=== PATIENT | male | born 1995 | race Caucasian/White ===

== ENCOUNTER 2021-10-18 15:57 | Emergency (ER) | payer SELFPAY ==
[~2021-10-18] VITALS: Ht 172.7 cm; Wt 73.0 kg
[2021-10-18 17:29] VITALS: BP 131/78
[2021-10-18] MEDS ORDERED: ONDA4TAB12 PO (17:30)
--- NOTE | 2021-10-18 17:31 | PHYS DOC ---
General Adult EDM: Chief Complaint: NAUSEA/VOMITING/DIARRHEA HPI: HPI: Patient is a 26-year-old male who presents to the emergency department for multiple complaints that started 2 days ago. Patient is complaining of nausea, diarrhea, headache, fatigue and loss of taste. He reports that the loss of taste started today. Patient denies any sick exposures. No treatment prior to arrival. Patient is denying blood in stools or vomit, fevers, worsening cough, chest pain he reports mild shortness of breath. (VETO ARMAS APRN) Review of Systems: Review of Systems: 14 body systems of the review of systems have been reviewed. See HPI for pert inent positive and negative responses, otherwise all other systems are negative, nonpertinent or noncontributory (VETO ARMAS APRN) Heart Score: C/O Chest Pain: No Risk Factors: Risk Factors: DM, Current or recent (<one month) smoker, HTN, HLP, family history of CAD, obesity. Risk Scores: Score 0 - 3: 2.5% MACE over next 6 weeks - Discharge Home Score 4 - 6: 20.3% MACE over next 6 weeks - Admit for Clinical Observation Score 7 - 10: 72.7% MACE over next 6 weeks - Early Invasive Strategies (VETO ARMAS APRN) Physical Exam: PE: Constitutional: Well developed, well nourished, no acute distress, non-toxic appearance. [] HENT: Normocephalic, atraumatic, bilateral external ears normal, oropharynx moist, no oral exudates, nose normal. [] Eyes: PERRL, EOMI, conjunctiva normal, no discharge. [] Neck: Normal range of motion, no stridor Cardiovascular:Heart rate regular rhythm, no murmur [] Lungs & Thorax: Bilateral breath sounds clear to auscultation [] Abdomen: Bowel sounds normal, soft, no tenderness, no masses, no pulsatile masses. [] Skin: Warm, dry, no erythema, no rash. [] Back: Normal range of motion Extremities: No tenderness, no cyanosis, no clubbing, ROM intact, no edema. [] Neurologic: Alert and oriented X 3, normal motor function, normal sensory functi on, no focal deficits noted. [] Psychologic: Affect normal, judgement normal, mood normal. [] (VETO ARMAS APRN) EKG: EKG: [] (VETO ARMAS APRN) Radiology/Procedures: Radiology/Procedures: [] (VETO ARMAS APRN) Course & Med Decision Making: Course & Med Decision Making Pertinent Labs and Imaging studies reviewed. (See chart for details) Patient presents to the emergency department for multiple complaints including nausea, diarrhea, fatigue, headache and loss of taste. Patient reports a chronic cough as he is a smoker. He is reporting mild shortness of breath, a chest x- ray was offered to him to rule out pneumonia which he refused. Patient is alert and oriented and capable of making his own medical decisions. Patient states that he just wants a Covid test. Patient is tolerating oral intake and is drinking in the ER. Work-up in the ER consisted of Covid testing, patient advised to self isolate until he receives those results. Patient's vital signs are stable and he is in no acute distress. I discussed with patient all findings and diagnostic testing as well as the need to follow-up with PCP for further evaluation and treatment or return to the ER if any new or worsening symptoms. Strict return precautions were also discussed at length. Patient voiced understanding and agreement with the plan. Patient is hemodynamically stable at the time of disposition. (VETO ARMAS APRN) Dragon Disclaimer: Dragon Disclaimer: This electronic medical record was generated, in whole or in part, using a voice recognition dictation system. (VETO ARMAS APRN) Departure Departure Impression: Primary Impression: Person under investigation for COVID-19 Disposition: HOME / SELF CARE / HOMELESS Condition: GOOD Referrals: NO PCP (PCP) Patient Instructions: Nausea and Vomiting Additional Instructions: You were seen in the emergency department for multiple complaints including nausea, diarrhea, fatigue, headache and loss of taste. You were offered further evaluation in the emergency department in which she declined. You requested a Covid test. You're tested in the ER today for COVID-19, you'll be notified of those results when they become available in approximately 2 days. Please self isolate until you receive these results. Treatment at this time include symptomatic treatment. For your headache you can take Tylenol and ibuprofen. You're being discharged home with a medication called Zofran to help with your nausea. Increase your fluids and rest. Please return to the emergency department if you develop high fevers refractory to treatment, intractable nausea or vomiting, blood in your stools or vomit, shortness of breath or chest pain. Scripts Ondansetron (ONDANSETRON ODT) 4 Mg Tab.rapdis 1 TAB PO PRN Q6-8HRS for nausea for 7 Days, #16 TAB 0 Refills Prov: VETO ARMAS APRN 10/18/21 Attending Signature I have participated in the care of this patient and I have reviewed and agree with all pertinent clinical information above including history, exam, and recommendations. (DAPHNE STONE DO) VETO ARMAS APRN Oct 18, 2021 17:31 DAPHNE STONE DO Oct 18, 2021 17:46
--- NOTE | 2021-10-19 13:30 | NUR ---
IP: Informed pt of negative covid test. Pt verbalized understanding.
== END 2021-10-18 17:45 | disposition home or self-care (01) ==
LOC: ER 15:57
DX: R11.0 Nausea (principal); Z20.822 Contact with and (suspected) exposure to COVID-19; R19.7 Diarrhea, unspecified; R51.9 Headache, unspecified; R53.83 Other fatigue; R43.9 Unspecified disturbances of smell and taste
CPT/HCPCS: 99283; U0003; U0005

== ENCOUNTER 2021-12-12 21:19 | Emergency (ER) | payer SELFPAY ==
[~2021-12-12] VITALS: Ht 172.7 cm; Wt 68.0 kg
[~2021-12-12 21:19] MED LIST: ONDA4TAB12 PO
[2021-12-12] MEDS ORDERED: AMOX1TAB61 PO (23:31)
--- NOTE | 2021-12-12 23:32 | ED.ADGEN ---
Past Medical History Past Surgical History: No Surgical History General Adult EDM: Chief Complaint: TOOTH ACHE OR PAIN HPI: HPI: Patient is a 26 year old male coming in for right lower dental pain and swelling. Patient said the symptoms started today. Denies any recent dental treatment has had dental caries in the past. No fever systemic complaints. No difficulty swallowing. Has had dental infections in the past but does not have a regular dentist. Review of Systems: Review of Systems: All other systems within normal limits except for as noted in the HPI Allergies: Allergies: Allergies Coded Allergies Type Severity Reaction Last Updated Verified No Known Drug Allergies 12/12/21 No Physical Exam: PE: Constitutional: Well developed, well nourished, no acute distress, non-toxic appearance. [] HENT: Normocephalic, atraumatic, bilateral external ears normal, nose normal. Numerous dental caries in right lower teeth, mild swelling of right lower jaw without fluctuance or erythema [] Eyes: PERRLA, conjunctiva normal, no discharge. [] Neck: No rigidity, supple, no stridor. [] Cardiovascular: Regular rate and rhythm, brisk cap refill [] Lungs & Thorax: Non labored symmetric respirations, no tachypnea or respiratory distress [] Abdomen: Soft, nondistended. Skin: Warm, dry, no erythema, no rash. [] Back: Unremarkable Extremities: No deformities, range of motion grossly intact, no lower extremity edema [] Neurologic: Alert and oriented X 3, no focal deficits noted. [] Psychologic: Affect normal, judgement normal, mood normal. [] Current Patient Data: Vital Signs: Vital Signs Date Time Temp Pulse Resp B/P (MAP) Pulse Ox O2 Delivery O2 Flow Rate FiO2 12/12/21 21:21 98.1 113 18 102/81 (88) 98 Room Air 98.1 EKG: EKG: [] Heart Score: C/O Chest Pain: No Risk Factors: Risk Factors: DM, Current or recent (<one month) smoker, HTN, HLP, family history of CAD, obesity. Risk Scores: Score 0 - 3: 2.5% MACE over next 6 weeks - Discharge Home Score 4 - 6: 20.3% MACE over next 6 weeks - Admit for Clinical Observation Score 7 - 10: 72.7% MACE over next 6 weeks - Early Invasive Strategies Radiology/Procedures: Radiology/Procedures: [] Course & Med Decision Making: Course & Med Decision Making Pertinent Labs and Imaging studies reviewed. (See chart for details) [] Dragon Disclaimer: Dragon Disclaimer: This electronic medical record was generated, in whole or in part, using a voice recognition dictation system. Departure Departure Impression: Primary Impression: Infected dental caries Disposition: HOME / SELF CARE / HOMELESS Condition: STABLE Referrals: NO PCP (PCP) Patient Instructions: Dental Abscess Scripts Amoxicillin/Potassium Clav (AUGMENTIN 875-125 TABLET) 1 Each Tablet 1 TAB PO Q12HR for antibiotic for 10 Days, #20 TAB Prov: BRADFORD GIBBONS MD 12/12/21 BRADFORD GIBBONS MD Dec 12, 2021 23:32
[2021-12-12] MEDS ORDERED: AMOXICILLIN/K CLAV 875/125MG TABLET. PO ONE (23:45)
[2021-12-12 23:57] VITALS: BP 114/73
== END 2021-12-13 00:01 | disposition home or self-care (01) ==
LOC: ER 21:19
DX: K02.9 Dental caries, unspecified (principal); K08.89 Other specified disorders of teeth and supporting structures
CPT/HCPCS: 99283